=== PATIENT | female | born 1975 | race African-American/Black ===

== ENCOUNTER 2020-04-11 15:13 | Outpatient (CLI) | payer BC ==
--- NOTE | 2020-04-11 15:59 | ULT ---
ULTRASOUND OF THE LEFT AXILLA: 04/11/20 HISTORY: Palpable mass in the left axilla. Patient had a negative mammogram in February 2020. The mammograms are n ot available for comparison. FINDINGS/IMPRESSION: Sonographic evaluation of the region of palpable concern in the left axilla demonstrates a solid appe aring nonshadowing mass measuring 3.4 x 2.4 x 1 cm. No definite flow is seen to the mass. Further evaluation with ultrasound guided biopsy is recommended. Discussed in person with the patient at 3:[address] Kiley Sylvester over the telephone at 3 :40 p.m. POS: OFF
== END 2020-04-11 15:14 | disposition home or self-care (01) ==
LOC: BICULT 15:13
PROVIDERS: ATTEND Advanced Practice Midwife
DX: R59.0 Localized enlarged lymph nodes (principal)
CPT/HCPCS: 76999

== ENCOUNTER → 2020-04-12 | Day surgery (SDC) | payer BC ==
--- NOTE | 2020-04-12 13:49 | ULT ---
PREPROCEDURE DIAGNOSIS: Left axillary mass POST PROCEDURE DIAGNOSIS: Left axillary sebaceous cyst PROCEDURE: Ultrasound-guided left axillary cyst aspiration [employer] MA[employer]ER: Kendra ANESTHESIA: 11 mL of buffered 1% lidocaine. SPECIMEN: 6 mL of whitish fluid TECHNIQUE: Prior to the procedure, the risks and benefits of an ultrasound guided axillary mass biopsy were expl ained to the patient which consented fully to the procedure. The patient's axillary mass was again identified with ultrasound. This breast was prepped and draped in the usual sterile fashion. Lidocaine was used to anesthetize the skin and soft tissues surrounding the mass. While injecting lid ocaine, lidocaine was injected into the mass which showed a swirling appearance consistent with a cyst containing debris rather than a mass. An 18-gauge spinal needle was then placed into this cyst and the contents were aspirated. A total of 6 mL of whitish aspirate was removed. At the completion of the aspiration, no residual fluid was seen within the cyst. IMPRESSION: Status post ultrasound-guided axillary cyst aspiration
--- NOTE | 2020-04-12 14:42 | ULT ---
PREPROCEDURE DIAGNOSIS: Left axillary mass POST PROCEDURE DIAGNOSIS: Left axillary sebaceous cyst PROCEDURE: Ultrasound-guided left axillary cyst aspiration [employer] REPAIRER: Kendra ANESTHESIA: 11 mL of buffered 1% lidocaine. SPECIMEN: 6 mL of whitish fluid TECHNIQUE: Prior to the procedure, the risks and benefits of an ultrasound guided axillary mass biopsy were expl ained to the patient which consented fully to the procedure. The patient's axillary mass was again identified with ultrasound. This breast was prepped and draped in the usual sterile fashion. Lidocaine was used to anesthetize the skin and soft tissues surrounding the mass. While injecting lid ocaine, lidocaine was injected into the mass which showed a swirling appearance consistent with a cyst containing debris rather than a mass. An 18-gauge spinal needle was then placed into this cyst and the contents were aspirated. A total of 6 mL of whitish aspirate was removed. At the completion of the aspiration, no residual fluid was seen within the cyst. IMPRESSION: Status post ultrasound-guided axillary cyst aspiration Transcribed Date/Time: 04/12/2020 2:42 PM
== END ==
LOC: BICULT 12:32
PROVIDERS: ATTEND Advanced Practice Midwife
PROC: 0H9U3ZZ Drainage of Left Breast, Percutaneous Approach (ICD-10-PCS; principal; 2020-04-12)
PROC: BH41ZZZ Ultrasonography of Left Breast (ICD-10-PCS; principal; 2020-04-12)
DX: L72.3 Sebaceous cyst (principal)
CPT/HCPCS: 38505; 76942

== ENCOUNTER 2021-10-01 14:36 | Outpatient (CLI) | payer BC | END 2021-10-01 14:37 | disposition home or self-care (01) | LOC: BICULT 14:36 | PROVIDERS: ATTEND Family Medicine | DX: M25.561 Pain in right knee (principal); M79.661 Pain in right lower leg ==